=== PATIENT | female | born 1955 | race Caucasian/White ===

== ENCOUNTER 2018-08-18 16:47 | Inpatient (IN) | payer BC ==
[~2018-08-18] VITALS: Ht 165.1 cm; Wt 74.6 kg
--- NOTE | 2018-08-18 18:30 | NUR ---
Patient in room [facility]. I have received report from RAGHU Carrillo and had the opportunity to ask questions and assume patient care.
--- NOTE | 2018-08-18 18:35 | NUR ---
received report from RAGHU Carrillo; informed pt will be a direct admit from [facility]
--- NOTE | 2018-08-18 18:35 | NUR ---
omit 1830 note
--- NOTE | 2018-08-18 18:45 | NUR ---
pt arrived with ; pt oriented to hospital & discussed hospital routine
[2018-08-18 18:50] VITALS: BP 135/54
--- NOTE | 2018-08-18 18:50 | NUR ---
Dr Ignacio responded to call that pt has arrived; informed MD of pt's VS's...MD states Dr Candelario to followup with admission orders
[2018-08-18] MEDS ORDERED: morphine 4 MG/ML inj SYRINge IV PRN ×2 (19:40)
[2018-08-18] MEDS ORDERED: ondansetron/PF 4mg/2ml inj IV PRN (19:40)
--- NOTE | 2018-08-18 20:00 | NUR ---
pt states she had a bottle of mag citrate (prior to her admission) as her MD thought her pain was possibly due to her being constipated Addendum: 08/19/18 at 0259 by Adry Carmona RN Amended: Links added.
[2018-08-18] MEDS: normal saline 1000ml 1,000 ML IV SCH (20:55)
[2018-08-18 23:00] VITALS: BP 115/51
[2018-08-18] MEDS ORDERED: CARV-49 PO (23:19)
[2018-08-18] MEDS ORDERED: ASPI-611 PO (23:19)
[2018-08-18] MEDS ORDERED: ATOR80TA PO (23:19)
[2018-08-19] VITALS (20 sets, daily range): BP systolic 122–155; BP diastolic 53–88
--- NOTE | 2018-08-19 03:10 | NUR ---
received word from [facility] that HR at 43; upon entering room, pt opened eyes; denied pain or discomfort; b/p 126/65, HR 62, rr 16, 02 sat at 96 on RA
[2018-08-19 05:10] LABS: PROTHROMBIN TIME 10.7 SECONDS (9.0-12.0)
[2018-08-19 05:11] LABS: INR 1.1 INR; PARTIAL THROMBOPLASTIN TIME 28 SECONDS (22-32)
[2018-08-19 05:13] LABS: BASOPHILS % (AUTO) 0.3 % (0-1); EOSINOPHILS # (AUTO) 0.1 X10'3 (0-0.9); EOSINOPHILS % (AUTO) 0.9 % (0-6); HEMATOCRIT 37.2 % (35.0-45.0); LYMPHOCYTES # (AUTO) 0.8 X10'3 (1.1-4.8); LYMPHOCYTES % (AUTO) 9.4 % (21-51); MEAN CORPUSCULAR VOLUME 88.7 FL (78-98); MEAN PLATELET VOLUME 6.8 FL (7.4-10.4); MONOCYTES % (AUTO) 11.7 % (2-12); NEUTROPHILS # (AUTO) 6.9 X10'3 (1.8-7.7); NEUTROPHILS % (AUTO) 77.7 % (42-75); PLATELET COUNT 192 X10'3 (140-440); RED BLOOD COUNT 4.19 X10'6 (4.20-5.60); RED CELL DISTRIBUTION WIDTH 12.9 % (11.5-14.5); WHITE BLOOD COUNT 8.9 X10'3 (4.5-11.0)
[2018-08-19 05:27] LABS: ALANINE AMINOTRANSFERASE 84 U/L (12-78); ALBUMIN 3.2 G/DL (3.4-5.0); ALBUMIN/GLOBULIN RATIO 1.3 (1.1-1.5); ALKALINE PHOSPHATASE 54 IU/L (46-116); ANION GAP 8 (8-16); ASPARTATE AMINO TRANSFERASE 18 U/L (10-37); BILIRUBIN,TOTAL 1.2 MG/DL (0.1-1.0); BLOOD UREA NITROGEN 27 MG/DL (7-18); BUN/CREATININE RATIO 18.4 (6.6-38.0); CALCIUM 8.1 MG/DL (8.5-10.1); CHLORIDE 108 MMOL/L (99-107); CREATININE 1.47 MG/DL (0.40-0.90); GLUCOSE 93 MG/DL (70-104); POTASSIUM 3.6 MMOL/L (3.5-5.1); SODIUM 142 MMOL/L (135-145); TOTAL PROTEIN 5.6 G/DL (6.4-8.2); eGFR 36 ML/MIN
--- NOTE | 2018-08-19 05:30 | NUR ---
informed by nursing supervisor [employer] that pt does not have a surgical time yet; pt informed; pt portal brochure given to pt...
--- NOTE | 2018-08-19 05:45 | NUR ---
pt had routine pre-op shower, linens changed & daniel wipes complete late last night
--- NOTE | 2018-08-19 06:45 | NUR ---
report given to RAGHU Carrillo
--- NOTE | 2018-08-19 07:09 | NUR ---
Patient in room [facility]. I have received report from RAGHU Paredes and had the opportunity to ask questions and assume patient care.
[2018-08-19] MEDS: normal saline 1000ml 1,000 ML IV SCH ×3 (08:09→22:59)
[2018-08-19] MEDS ORDERED: fentaNYL/PF 50MCG/1 ML 2ML syringe ONE (16:59)
[2018-08-19] MEDS ORDERED: midazolam 2 mg/2 ml injection ONE (16:59)
[2018-08-19] MEDS ORDERED: glycopyrrolate 0.2mg/ml inj ONE (17:01)
[2018-08-19] MEDS ORDERED: LIDOcaine 1%/PF 5ML 10 MG/ML VIAL ONE (17:01)
[2018-08-19] MEDS ORDERED: sevoflurane 250ml liquid IH ONE (17:01)
[2018-08-19] MEDS ORDERED: ondansetron/PF 4mg/2ml inj IV PRN (17:35)
[2018-08-19] MEDS ORDERED: morphine 4 MG/ML inj SYRINge IV PRN (17:35)
[2018-08-19] MEDS ORDERED: HYDROmorphone inj. 0.5 MG/0.5 ML DISP.SYRIN IV PRN ×2 (17:35)
[2018-08-19] MEDS ORDERED: ringers solution, lacted 1,000 ML IV SCH (17:35)
[2018-08-19] MEDS ORDERED: LIDOcaine 2% 5ml jelly ONE (17:42)
[2018-08-19] MEDS ORDERED: dexamethasone sod phosphate 4mg/ml inj. ONE (17:42)
[2018-08-19] MEDS ORDERED: propofol inj 20 ML IV ONE (17:42)
[2018-08-19] MEDS ORDERED: ondansetron/PF 4mg/2ml inj ONE (17:42)
[2018-08-19] MEDS ORDERED: succinylcholine 20mg/ml inj IV ONE (17:42)
[2018-08-19] MEDS ORDERED: albuterol 60 PUFF/8GM Inhaler IH ONE (17:49)
--- NOTE | 2018-08-19 18:01 | NUR ---
Received from OR via BED, accompanied by Anesthesiologist DR BAILEY and report given by Anesthesiologist. PT VERY DROWSY W/ETT, VSS, ETT TUBE D/CD BY DR BAILEY SHORTLY AFTER PT ARRIVAL, PT DENIES PAIN. Addendum: 08/19/18 at 1809 by Manisha Vo RN Amended: Links added. Addendum: 08/19/18 at 1810 by Manisha Vo RN PT ARRIVED TO ROOM 4 AT 17:50.
--- NOTE | 2018-08-19 18:20 | NUR ---
Patient in OR.
--- NOTE | 2018-08-19 18:32 | NUR ---
Problems reprioritized. Patient report given, questions answered & plan of care reviewed with RAGHU Cisse.
--- NOTE | 2018-08-19 19:30 | NUR ---
PT UP W/ STANDBY ASSIST TO BATHROOM FOR VOID, URINE PINK, BACK TO BED, STABLE. Report called to receiving nurse. Transferred via BED, NO Belongings, RECEIVING RN AT BEDSIDE TO RECEIVE PT, BLL, CALL LIGHT GIVEN TO PT, PRESENT. Special Issues communicated to receiving nurse. YES. Addendum: 08/19/18 at 1935 by Manisha Vo RN Amended: Links added.
[2018-08-20] VITALS: BP 138/69
[2018-08-20 00:16] VITALS: BP 147/63
[2018-08-20 00:18] VITALS: BP 147/63
[2018-08-20 05:23] LABS: BASOPHILS % (AUTO) 0.2 % (0-1); EOSINOPHILS % (AUTO) 0 % (0-6); HEMATOCRIT 39.6 % (35.0-45.0); HEMOGLOBIN 13.8 g/dl (12.0-16.0); LYMPHOCYTES # (AUTO) 0.6 X10'3 (1.1-4.8); LYMPHOCYTES % (AUTO) 5.5 % (21-51); MEAN CORPUSCULAR HEMOGLOBIN 31.1 PG (27.0-31.0); MEAN CORPUSCULAR HGB CONC 34.9 g/dL (33.0-36.5); MEAN CORPUSCULAR VOLUME 89.3 FL (78-98); MONOCYTES # (AUTO) 0.4 X10'3 (0-0.9); MONOCYTES % (AUTO) 4.3 % (2-12); NEUTROPHILS # (AUTO) 9.4 X10'3 (1.8-7.7); PLATELET COUNT 213 X10'3 (140-440); RED BLOOD COUNT 4.43 X10'6 (4.20-5.60); RED CELL DISTRIBUTION WIDTH 12.6 % (11.5-14.5); WHITE BLOOD COUNT 10.4 X10'3 (4.5-11.0)
[2018-08-20 05:44] LABS: ALANINE AMINOTRANSFERASE 66 U/L (12-78); ALBUMIN 2.9 G/DL (3.4-5.0); ALKALINE PHOSPHATASE 50 IU/L (46-116); ANION GAP 8 (8-16); ASPARTATE AMINO TRANSFERASE 13 U/L (10-37); BILIRUBIN,TOTAL 0.8 MG/DL (0.1-1.0); BLOOD UREA NITROGEN 21 MG/DL (7-18); BUN/CREATININE RATIO 17.8 (6.6-38.0); CALCIUM 8.1 MG/DL (8.5-10.1); CHLORIDE 112 MMOL/L (99-107); CREATININE 1.18 MG/DL (0.40-0.90); GLUCOSE 141 MG/DL (70-104); POTASSIUM 4.1 MMOL/L (3.5-5.1); SODIUM 144 MMOL/L (135-145); TOTAL CARBON DIOXIDE 24.5 MMOL/L (24-32); TOTAL PROTEIN 5.8 G/DL (6.4-8.2); eGFR 46 ML/MIN
--- NOTE | 2018-08-20 06:25 | NUR ---
Patient in room [facility]. I have received report from RAGHU Cisse and had the opportunity to ask questions and assume patient care.
--- NOTE | 2018-08-20 06:26 | NUR ---
Reported off to Lorena KRISHNAMURTHY. Patient is awake and alert sitting at her bedside. In no apparent distress on room air. Call light and items of frequent use within reach.
[2018-08-20 07:06] VITALS: BP 125/57
[2018-08-20 11:00] VITALS: BP 134/62
[2018-08-20] MEDS: normal saline 1000ml 1,000 ML IV SCH (11:48)
--- NOTE | 2018-08-20 15:20 | NUR ---
Pt discharged to home with all belongings in private vehicle, accompanied by . Discharge instructions and medications reviewed. IV DC'd, cannula intact. Tele monitor removed. Pt instructed to follow up with Dr Oh in 2 weeks for lithotripsy. Pt escorted to front lobby by PCT.
== END 2018-08-20 15:34 | disposition home or self-care (01) | DRG 660 ==
LOC: SUR 3N 18:20
PROVIDERS: ADMIT Internal Medicine; ATTEND Internal Medicine
PROC: 0T768DZ Dilation of Right Ureter with Intraluminal Device, Via Natural or Artificial Opening Endoscopic (ICD-10-PCS; principal; 2018-08-19 17:01)
DX: N20.1 Calculus of ureter (principal); N17.9 Acute kidney failure, unspecified; N13.8 Other obstructive and reflux uropathy; E78.5 Hyperlipidemia, unspecified; R00.1 Bradycardia, unspecified; I25.10 Atherosclerotic heart disease of native coronary artery without angina pectoris; N18.9 Chronic kidney disease, unspecified; Z95.5 Presence of coronary angioplasty implant and graft; Z88.6 Allergy status to analgesic agent; Z79.899 Other long term (current) drug therapy
CPT/HCPCS: 36415; 71045; 76000; 80053; 85025; 85610; 85730; 87070; 93005; A4402; C1758; C1769; C2617; G0378; J0330; J1100; J2001; J2250; J2405; J2704; J3010; J3490; J7030; J7120